=== PATIENT | male | born 1945 | race Caucasian/White ===

== ENCOUNTER 2024-03-31 11:02 | Emergency (ER) | payer MEDICARE ==
[~2024-03-31] VITALS: Ht 172.7 cm; Wt 68.0 kg
[2024-03-31 11:03] VITALS: O2SAT 99
[2024-03-31] MEDS: ACETAMINOPHEN 325MG TABLET PO ONE (14:00)
[2024-03-31 14:22] LABS: BASOPHILS % 0.1 % (0.0-2.0); HEMATOCRIT. 40.8 % (42.0-52.0); HEMOGLOBIN. 13.9 g/dL (14.0-18.0); LYMPHOCYTES % 7.1 % (20.0-50.0); MEAN CORPUSCULAR HEMOGLOBIN 27.9 pg (28.0-32.0); MEAN CORPUSCULAR HGB CONC 34.2 g/dL (31.0-37.0); MEAN CORPUSCULAR VOLUME 81.8 fL (80.0-94.0); MEAN PLATELET VOLUME 7.1 fl (7.4-10.4); MONOCYTES % 9.7 % (2.0-8.0); NEUTROPHILS % 83.1 % (40.0-76.0); PLATELET 256 x1000/uL (130-400); RED BLOOD CELL COUNT 4.99 mill/uL (4.7-6.1); RED CELL DISTRIBUTION WIDTH 15.3 % (11.6-14.6); WHITE BLOOD COUNT 9.6 x1000/uL (4.5-11.0)
[2024-03-31 14:28] LABS: CHLORIDE 103 mEq/L (98-107); POTASSIUM 3.9 mEq/L (3.5-5.1); SODIUM 135 mEq/L (136-145)
[2024-03-31 14:29] LABS: CALCIUM 9.3 mg/dL (8.7-10.4); CARBON DIOXIDE 25 mEq/L (21-32)
[2024-03-31 14:34] LABS: CREATININE 0.9 mg/dL (0.6-1.3); GLUCOSE 99 mg/dL (70-105); UREA NITROGEN BLOOD 15 mg/dL (9-23)
[2024-03-31] MEDS ORDERED: CEPH500T MT (15:28)
[2024-03-31] MEDS ORDERED: DOXY100T28 MT (15:28)
[2024-03-31] MEDS ORDERED: IBUP-2030 MT (15:28)
[2024-03-31] MEDS ORDERED: GABA-529 MT (15:59)
[2024-03-31 16:18] VITALS: BP 128/74; PULSE 89; RESP 18; TEMP 98
[2024-04-04] MEDS ORDERED: CARB-33 MT (17:28)
[2024-04-04] MEDS ORDERED: AMAN100T MT (17:35)
== END 2024-03-31 16:20 | disposition home or self-care (01) ==
LOC: ER 11:02
DX: M79.604 Pain in right leg (principal); L03.115 Cellulitis of right lower limb; I10 Essential (primary) hypertension; Z98.890 Other specified postprocedural states
CPT/HCPCS: 36415; 73590; 73610; 80048; 85025; 93971; 99284

== ENCOUNTER 2024-06-02 12:52 | Emergency (ER) | payer MEDICARE ==
[~2024-06-02] VITALS: Ht 172.7 cm; Wt 78.0 kg
[~2024-06-02 12:52] MED LIST: AMAN100T MT; CARB-33 MT; CEPH500T MT; DOXY100T28 MT; GABA-529 MT; IBUP-2030 MT; SULF1TAB48 MT
[2024-06-02 13:01] VITALS: BP 149/83; PULSE 82; TEMP 98.8; O2SAT 96
[2024-06-02 14:51] LABS: CLARITY URINE TURBID (CLEAR); COLOR URINE ORANGE (YELLOW); GLUCOSE URINE NEGATIVE (NEGATIVE); KETONES URINE TRACE (NEGATIVE); LEUKOCYTE ESTERASE URINE 3+ (NEGATIVE); NITRITE URINE NEGATIVE (NEGATIVE); OCCULT BLOOD URINE 3+ (NEGATIVE); PROTEIN URINE 3+ (NEGATIVE); SPECIFIC GRAVITY URINE 1.023 (1.005-1.030)
[2024-06-02 15:06] LABS: SQUAMOUS EPITHELIAL CELL URINE NONE SEEN /lpf (RARE/1+)
[2024-06-02 15:07] LABS: BACTERIA URINE 4+; RBC URINE TNTC /hpf (0-2)
[2024-06-02 15:08] LABS: WBC URINE TNTC /hpf (0-2)
[2024-06-02] MEDS ORDERED: CEFP200T13 MT (15:17)
[2024-06-02 15:20] VITALS: RESP 18
== END 2024-06-02 15:45 | disposition home or self-care (01) ==
LOC: ER 12:52
DX: N39.0 Urinary tract infection, site not specified (principal); I10 Essential (primary) hypertension; G20.A1 Parkinson's disease without dyskinesia, without mention of fluctuations
CPT/HCPCS: 81003; 87077; 87186; 99283

== ENCOUNTER 2025-02-03 10:27 | Inpatient (IN) | payer MEDICARE, OTHER ==
[~2025-02-03] VITALS: Ht 160 cm; Wt 70.8 kg
[~2025-02-03 10:27] MED LIST changes: +CEFP200T13 MT
[2025-02-03] MEDS: SODIUM CHLORIDE 0.9% 500 ML IV ONE (11:04)
[2025-02-03 11:19] LABS: BASOPHILS % 0.2 % (0.0-2.0); EOSINOPHILS % 0.1 % (0.0-5.0); HEMATOCRIT. 38.4 % (42.0-52.0); HEMOGLOBIN. 12.9 g/dL (14.0-18.0); LYMPHOCYTES % 9.6 % (20.0-50.0); MEAN CORPUSCULAR HEMOGLOBIN 27.2 pg (28.0-32.0); MEAN CORPUSCULAR HGB CONC 33.5 g/dL (31.0-37.0); MEAN CORPUSCULAR VOLUME 81.2 fL (80.0-94.0); MEAN PLATELET VOLUME 7.7 fl (7.4-10.4); MONOCYTES % 3.6 % (2.0-8.0); NEUTROPHILS % 86.5 % (40.0-76.0); PLATELET 72 x1000/uL (130-400); RED BLOOD CELL COUNT 4.73 mill/uL (4.7-6.1); RED CELL DISTRIBUTION WIDTH 16.6 % (11.6-14.6); WHITE BLOOD COUNT 3.2 x1000/uL (4.5-11.0)
[2025-02-03 11:20] LABS: CHLORIDE 96 mEq/L (98-107); SODIUM 128 mEq/L (136-145)
[2025-02-03 11:21] LABS: CARBON DIOXIDE 25 mEq/L (21-32)
[2025-02-03 11:22] LABS: CALCIUM 9.1 mg/dL (8.7-10.4)
[2025-02-03 11:26] LABS: GLUCOSE 87 mg/dL (70-105)
[2025-02-03 11:27] LABS: UREA NITROGEN BLOOD 29 mg/dL (9-23)
[2025-02-03 11:28] LABS: TROPONIN I HIGH SENSITIVITY 26 ng/L (3.0-53)
[2025-02-03 11:29] LABS: PHOSPHORUS 3.7 mg/dL (2.5-4.9)
[2025-02-03 11:45] LABS: CREATININE 1.6 mg/dL (0.6-1.3)
[2025-02-03] MEDS ORDERED: CALCIUM GLUCONATE 1,000 MG in DEXT 5% WATER 100 ML IV ONE (12:30)
[2025-02-03] MEDS ORDERED: INSULIN REGULAR (HUMULIN R) 1000UNITS/10ML VIAL IV ONE (12:30)
[2025-02-03] MEDS: CALCIUM GLUCONATE 1GM PREMIX 50 ML IV SCH (13:03)
[2025-02-03] MEDS: DEXTROSE 50% WATER 50ML SYRINGE IV ONE (13:04)
[2025-02-03] MEDS: INSULIN REGULAR (HUMULIN R) 1000UNITS/10ML VIAL IV NR (13:06)
[2025-02-03] MEDS ORDERED: ACETAMINOPHEN 325MG TABLET PO PRN (15:00)
[2025-02-03] MEDS ORDERED: ENOXAPARIN 40MG/0.4ML SYR SUBCUT SCH (15:00)
[2025-02-03] MEDS ORDERED: DOCUSATE SODIUM 100MG CAPSULE PO PRN (15:00)
[2025-02-03] MEDS: PANTOPRAZOLE 40MG DR TABLET PO SCH (15:00)
[2025-02-03] MEDS: SODIUM POLYSTYRENE SULFONATE 15 G/60 ML BOT PO NR (15:28)
[2025-02-03] MEDS: DEXT 5%/0.45% NACL 1000ML 1,000 ML IV SCH (15:42)
[2025-02-03] MEDS ORDERED: DEXT 10% WATER 1,000 ML IV ONE (17:00)
[2025-02-03] MEDS: GABAPENTIN 100MG CAPSULE PO SCH (17:00)
[2025-02-03] MEDS: DEXTROSE 50% WATER 50ML SYRINGE IV NR (17:03)
[2025-02-03 17:08] LABS: POTASSIUM 4.9 mEq/L (3.5-5.1)
[2025-02-03 17:09] LABS: CALCIUM 8.7 mg/dL (8.7-10.4)
[2025-02-03 17:14] LABS: CREATININE 1.5 mg/dL (0.6-1.3)
[2025-02-03] MEDS: ENOXAPARIN 30MG/0.3ML SYR SUBCUT SCH (17:37)
[2025-02-03] MEDS ORDERED: ACETAMINOPHEN 650MG SUPP PR PRN (17:45)
[2025-02-03] MEDS ORDERED: IPRATROPIUM/ALBUTEROL 0.5-3(2.5)MG/3ML NEB NEB PRN (17:45)
[2025-02-03] MEDS: VANCOMYCIN 1G PREMIX 200 ML IV SCH (18:24)
[2025-02-03] MEDS: LEVOFLOXACIN 500MG PREMIX 100 ML IV SCH (20:01)
[2025-02-03] MEDS: MVI, ADULT NO.1 10 ML, FOLIC ACID 1 MG, THIAMINE HCL 100 MG in SODIUM CHLORIDE 0.9% 1,0... IV SCH (20:15)
[2025-02-03] MEDS: AMANTADINE 100MG CAPSULE PO SCH (21:00)
[2025-02-03 22:00] VITALS: BP 123/57; PULSE 60; RESP 13; TEMP 34.3; O2SAT 95
[2025-02-03] MEDS: CARBIDOPA/LEVODOPA 10/100MG TABLET PO SCH (22:00)
[2025-02-03 23:08] VITALS: BP 123/57; PULSE 42; RESP 11; TEMP 33.4
[2025-02-04] VITALS (45 sets, daily range): BP systolic 82–129; BP diastolic 45–88; PULSE 45–87; RESP 11–26; TEMP 34.8–36.7; O2SAT 89–100
[2025-02-04 00:26] LABS: CREATINE KINASE MB FRACTION 27.9 ng/mL (0.5-3.6)
[2025-02-04] MEDS: PIPERACILLIN/TAZO 3.375G/50ML 50 ML IV SCH (01:25)
[2025-02-04] MEDS: ACETYLCYSTEINE 200MG/ML 20% VIAL 4ML INH SCH (01:38)
[2025-02-04 01:52] LABS: BG BASE EXCESS 0.4 mmol/L (-2.0-3.0); BG CARBOXYHEMOGLOBIN 0.3 % (0.5-1.5); BG DEOXYHEMOGLOBIN 5.5 % (0.0-5.0); BG FRACTION INSPIRED OXYGEN 21; BG HCO3 ACT 25.4 mmol/L (21.0-28.0); BG METHEMOGLOBIN 0.3 % (0.5-1.5); BG OXYGEN SATURATION 94.5 % (94.0-98.0); BG OXYHEMOGLOBIN 93.9 % (94.0-98.0); BG PCO2 42.9 mmHg (35.0-48.0); BG PH 7.391 (7.350-7.450); BG PO2 69.7 mmHg (83.0-108.0); BG SAMPLE SITE RIGHT RADIAL; BG VENT MODE ROOM AIR
[2025-02-04] MEDS: DEXT 5%/0.45% NACL 1000ML 1,000 ML IV SCH (07:07)
[2025-02-04 07:12] LABS: BASOPHILS % 0.2 % (0.0-2.0); EOSINOPHILS % 0.1 % (0.0-5.0); HEMATOCRIT. 32.1 % (42.0-52.0); HEMOGLOBIN. 10.8 g/dL (14.0-18.0); LYMPHOCYTES % 7.7 % (20.0-50.0); MEAN CORPUSCULAR HEMOGLOBIN 27.1 pg (28.0-32.0); MEAN CORPUSCULAR HGB CONC 33.7 g/dL (31.0-37.0); MEAN CORPUSCULAR VOLUME 80.4 fL (80.0-94.0); MEAN PLATELET VOLUME 8.9 fl (7.4-10.4); MONOCYTES % 3.4 % (2.0-8.0); NEUTROPHILS % 88.6 % (40.0-76.0); PLATELET 67 x1000/uL (130-400); RED BLOOD CELL COUNT 3.99 mill/uL (4.7-6.1); RED CELL DISTRIBUTION WIDTH 16.2 % (11.6-14.6)
[2025-02-04 07:27] LABS: DIFFERENTIAL COMMENT 1
[2025-02-04 07:42] LABS: CALCIUM 8.1 mg/dL (8.7-10.4)
[2025-02-04 07:47] LABS: CREATININE 1.5 mg/dL (0.6-1.3)
[2025-02-04 07:49] LABS: THYROID STIMULATING HORMONE 2.87 uIU/mL (0.55-4.78)
[2025-02-04] MEDS ORDERED: DEXTROSE 50% WATER 50ML SYRINGE IV ONE (07:53)
[2025-02-04] MEDS: SODIUM CHLORIDE 0.9% 500 ML IV ONE (08:00)
[2025-02-04] MEDS ORDERED: DEXT 10% WATER 1,000 ML IV SCH (08:00)
[2025-02-04 08:02] LABS: BG BASE EXCESS -0.7 mmol/L (-2.0-3.0); BG CARBOXYHEMOGLOBIN 0.1 % (0.5-1.5); BG DEOXYHEMOGLOBIN 5.3 % (0.0-5.0); BG FRACTION INSPIRED OXYGEN 50; BG HCO3 ACT 21.6 mmol/L (21.0-28.0); BG METHEMOGLOBIN 0.3 % (0.5-1.5); BG OXYGEN SATURATION 94.7 % (94.0-98.0); BG OXYHEMOGLOBIN 94.3 % (94.0-98.0); BG PCO2 28.5 mmHg (35.0-48.0); BG PH 7.498 (7.350-7.450); BG PO2 65.1 mmHg (83.0-108.0); BG SAMPLE SITE LEFT RADIAL; BG TOTAL HEMOGLOBIN 11.1 g/dL (13.5-17.5); BG VENT MODE MASK - VENTI
[2025-02-04] MEDS ORDERED: DEXTROSE 50% WATER 50ML SYRINGE IV PRN (08:15)
[2025-02-04] MEDS: DEXTROSE 50% WATER 50ML SYRINGE IV PRN (08:32)
[2025-02-04] MEDS: PANTOPRAZOLE SODIUM 40 MG/VIAL IV SCH (08:47)
[2025-02-04 09:02] LABS: POTASSIUM 6.3 mEq/L (3.5-5.1)
[2025-02-04] MEDS ORDERED: ALBUTEROL (0.083%) 2.5MG/3ML NEB HHN NR ×2 (11:00→14:00)
[2025-02-04] MEDS: FUROSEMIDE 20MG/2ML VIAL IVP NR (11:00)
[2025-02-04] MEDS ORDERED: VANCOMYCIN 500MG PREMIX 100 ML IV SCH (12:00)
[2025-02-04 13:05] LABS: POTASSIUM 6.4 mEq/L (3.5-5.1)
[2025-02-04] MEDS: IPRATROPIUM/ALBUTEROL 0.5-3(2.5)MG/3ML NEB HHN SCH (13:30)
[2025-02-04] MEDS ORDERED: NOREPINEPHRINE 8MG/250ML PMX 250 ML IV PRN (13:45)
[2025-02-04] MEDS: SODIUM ZIRCONIUM CYCLOSILICATE 10GM/PACKET PO NR (14:00)
[2025-02-04] MEDS: METHYLPREDNISOLONE SOD SUCC 40MG/ML (ACT-O-VIAL) IV SCH (14:00)
[2025-02-04] MEDS ORDERED: CALCIUM GLUCONATE 1GM PREMIX 50 ML IV NR (14:00)
[2025-02-04 14:18] LABS: BG BASE EXCESS -0.5 mmol/L (-2.0-3.0); BG CARBOXYHEMOGLOBIN 0.6 % (0.5-1.5); BG DEOXYHEMOGLOBIN 9.8 % (0.0-5.0); BG FRACTION INSPIRED OXYGEN 50; BG HCO3 ACT 21.8 mmol/L (21.0-28.0); BG METHEMOGLOBIN 0.3 % (0.5-1.5); BG OXYGEN SATURATION 90.1 % (94.0-98.0); BG OXYHEMOGLOBIN 89.3 % (94.0-98.0); BG PH 7.494 (7.350-7.450); BG PO2 51.2 mmHg (83.0-108.0); BG SAMPLE SITE RIGHT RADIAL; BG TOTAL HEMOGLOBIN 12.4 g/dL (13.5-17.5); BG VENT MODE MASK - VENTI
[2025-02-04 14:38] LABS: CREATINE KINASE 85 IU/L (46-171)
[2025-02-04] MEDS ORDERED: MIDAZOLAM 100MG/100ML PMX 100 ML IV PRN (15:30)
[2025-02-04] MEDS ORDERED: PHENYLEPHRINE 100 MG in DEXT 5% WATER 240 ML IV PRN (15:30)
[2025-02-04 15:39] LABS: BG CARBOXYHEMOGLOBIN 0.1 % (0.5-1.5); BG DEOXYHEMOGLOBIN 0.7 % (0.0-5.0); BG FRACTION INSPIRED OXYGEN 100; BG HCO3 ACT 22.2 mmol/L (21.0-28.0); BG METHEMOGLOBIN 0.4 % (0.5-1.5); BG OXYGEN SATURATION 99.3 % (94.0-98.0); BG OXYHEMOGLOBIN 98.8 % (94.0-98.0); BG PCO2 36.2 mmHg (35.0-48.0); BG PH 7.406 (7.350-7.450); BG PO2 173.4 mmHg (83.0-108.0); BG SAMPLE SITE LEFT RADIAL; BG TOTAL HEMOGLOBIN 12.5 g/dL (13.5-17.5); BG TOTAL RESPIRATORY RATE 16 b/min; BG VENT MODE VENT - AC
[2025-02-04] MEDS: INSULIN REGULAR (HUMULIN R) 1000UNITS/10ML VIAL IV NR (15:54)
[2025-02-04] MEDS: DEXTROSE 50% WATER 50ML SYRINGE IV NR (15:54)
[2025-02-04] MEDS: BLOOD SUGAR DIAGNOSTIC STRIP TEST SCH (15:55)
[2025-02-04] MEDS: INSULIN LISPRO 100 UNITS/ML SUBCUT SCH (15:55)
[2025-02-04] MEDS: SODIUM POLYSTYRENE SULFONATE 15 G/60 ML BOT PO SCH (16:40)
[2025-02-04] MEDS: CALCIUM GLUCONATE 1GM PREMIX 50 ML IV NR (17:32)
[2025-02-04] MEDS: VANCOMYCIN 750MG/150ML (BAXTER) IV SCH (17:33)
[2025-02-04] MEDS: DEXTROSE 20% WATER 500 ML IV ONE (19:49)
[2025-02-04 21:56] LABS: POTASSIUM 5.1 mEq/L (3.5-5.1)
[2025-02-05] VITALS (100 sets, daily range): BP systolic 109–162; BP diastolic 48–96; PULSE 51–82; RESP 11–30; TEMP 35.6–36.7; O2SAT 98–100
[2025-02-05] MEDS: INSULIN LISPRO 100 UNITS/ML SUBCUT SCH (05:10)
[2025-02-05] MEDS: BLOOD SUGAR DIAGNOSTIC STRIP TEST SCH (05:10)
[2025-02-05] MEDS: DEXTROSE 20% WATER 500 ML IV SCH (06:40)
[2025-02-05 08:53] LABS: BG BASE EXCESS -6.2 mmol/L (-2.0-3.0); BG CARBOXYHEMOGLOBIN 0.5 % (0.5-1.5); BG DEOXYHEMOGLOBIN 0.6 % (0.0-5.0); BG FRACTION INSPIRED OXYGEN 50; BG HCO3 ACT 18.8 mmol/L (21.0-28.0); BG METHEMOGLOBIN 0.1 % (0.5-1.5); BG OXYGEN SATURATION 99.4 % (94.0-98.0); BG OXYHEMOGLOBIN 98.8 % (94.0-98.0); BG PCO2 35.9 mmHg (35.0-48.0); BG PH 7.338 (7.350-7.450); BG PO2 174.2 mmHg (83.0-108.0); BG SAMPLE SITE LEFT RADIAL; BG TOTAL HEMOGLOBIN 13.3 g/dL (13.5-17.5); BG TOTAL RESPIRATORY RATE 16 b/min; BG VENT MODE VENT - AC
[2025-02-05] MEDS: SODIUM CHLORIDE 0.9% 500 ML IV ONE (09:00)
[2025-02-05 10:37] LABS: HEMOGLOBIN. 12.4 g/dL (14.0-18.0); MEAN CORPUSCULAR HEMOGLOBIN 27.7 pg (28.0-32.0); MEAN CORPUSCULAR HGB CONC 33.6 g/dL (31.0-37.0); MEAN CORPUSCULAR VOLUME 82.5 fL (80.0-94.0); MEAN PLATELET VOLUME 9.4 fl (7.4-10.4); PLATELET 51 x1000/uL (130-400); RED BLOOD CELL COUNT 4.48 mill/uL (4.7-6.1); RED CELL DISTRIBUTION WIDTH 16.6 % (11.6-14.6); WHITE BLOOD COUNT 7.5 x1000/uL (4.5-11.0)
[2025-02-05 10:50] LABS: CHLORIDE 93 mEq/L (98-107); POTASSIUM 5.3 mEq/L (3.5-5.1); SODIUM 121 mEq/L (136-145)
[2025-02-05 10:51] LABS: CARBON DIOXIDE 21 mEq/L (21-32)
[2025-02-05 10:52] LABS: CALCIUM 8.3 mg/dL (8.7-10.4); DIFFERENTIAL COMMENT 1
[2025-02-05 10:56] LABS: GLUCOSE 164 mg/dL (70-105); UREA NITROGEN BLOOD 45 mg/dL (9-23)
[2025-02-05 10:58] LABS: ALANINE AMINOTRANSFERASE 120 IU/L (10-49); ALBUMIN 2.7 g/dL (3.2-4.8); ASPARTATE AMINOTRANSFERASE 125 IU/L (<34)
[2025-02-05 10:59] LABS: BILIRUBIN TOTAL 0.7 mg/dL (0.1-1.0)
[2025-02-05 11:17] LABS: CREATININE 2.6 mg/dL (0.6-1.3)
[2025-02-05] MEDS: SODIUM BICARBONATE 8.4% 50MEQ/50ML SYR IV SCH (12:41)
[2025-02-05] MEDS: FUROSEMIDE 20MG/2ML VIAL IVP SCH (12:42)
[2025-02-05] MEDS: SODIUM ZIRCONIUM CYCLOSILICATE 10GM/PACKET PO SCH (12:58)
[2025-02-05] MEDS: LIDOCAINE HCL 1% 10 MG/ML 10ML VIAL ONE (13:04)
[2025-02-05 14:19] LABS: PLATELET ESTIMATE MARKEDLY DECREASED
[2025-02-05 14:20] LABS: ANISOCYTOSIS 1+
[2025-02-05] MEDS: CALCIUM GLUCONATE 1GM PREMIX 50 ML IV ONE (15:22)
[2025-02-05] MEDS: CALCIUM GLUCONATE 1GM PREMIX 50 ML IV NR (15:52)
[2025-02-05] MEDS: VANCOMYCIN 750MG PREMIX 150 ML IV NR (19:56)
[2025-02-05] MEDS: PIPERACILLIN/TAZO 3.375G/50ML 50 ML IV SCH (21:08)
[2025-02-06] VITALS (67 sets, daily range): BP systolic 109–143; BP diastolic 51–80; PULSE 50–58; RESP 11–22; TEMP 36.3–36.4; O2SAT 98–100
[2025-02-06] MEDS: CARBIDOPA/LEVODOPA 25/250MG TABLET PO SCH (05:37)
[2025-02-06 05:59] LABS: CALCIUM 8.3 mg/dL (8.7-10.4); POTASSIUM 4.8 mEq/L (3.5-5.1)
[2025-02-06 06:05] LABS: CREATININE 2.7 mg/dL (0.6-1.3)
[2025-02-06 08:11] LABS: HEMATOCRIT. 32.3 % (42.0-52.0); MEAN CORPUSCULAR HEMOGLOBIN 27.7 pg (28.0-32.0); MEAN CORPUSCULAR HGB CONC 34.2 g/dL (31.0-37.0); MEAN CORPUSCULAR VOLUME 80.8 fL (80.0-94.0); MEAN PLATELET VOLUME 10.5 fl (7.4-10.4); RED BLOOD CELL COUNT 3.99 mill/uL (4.7-6.1); RED CELL DISTRIBUTION WIDTH 16.5 % (11.6-14.6); WHITE BLOOD COUNT 7.1 x1000/uL (4.5-11.0)
[2025-02-06 08:43] LABS: DIFFERENTIAL COMMENT 1
[2025-02-06 08:49] LABS: PLATELET 35 x1000/uL (130-400)
[2025-02-06 16:42] LABS: PLATELET ESTIMATE MARKEDLY DECREASED
[2025-02-06 21:35] LABS: BG BASE EXCESS -4.8 mmol/L (-2.0-3.0); BG CARBOXYHEMOGLOBIN 0.3 % (0.5-1.5); BG DEOXYHEMOGLOBIN 1.9 % (0.0-5.0); BG FRACTION INSPIRED OXYGEN 40; BG HCO3 ACT 19.2 mmol/L (21.0-28.0); BG METHEMOGLOBIN 0.2 % (0.5-1.5); BG OXYGEN SATURATION 98.1 % (94.0-98.0); BG OXYHEMOGLOBIN 97.6 % (94.0-98.0); BG PCO2 32.2 mmHg (35.0-48.0); BG PH 7.394 (7.350-7.450); BG PO2 104.7 mmHg (83.0-108.0); BG SAMPLE SITE LEFT RADIAL; BG TOTAL HEMOGLOBIN 11.7 g/dL (13.5-17.5); BG VENT MODE VENT - AC
[2025-02-07] VITALS (42 sets, daily range): BP systolic 114–139; BP diastolic 62–78; PULSE 50–94; RESP 13–30; TEMP 36.2–36.5; O2SAT 98–100
[2025-02-07 06:35] LABS: CALCIUM 7.9 mg/dL (8.7-10.4); POTASSIUM 4.5 mEq/L (3.5-5.1)
[2025-02-07 06:41] LABS: CREATININE 2.5 mg/dL (0.6-1.3)
[2025-02-07] MEDS: VANCOMYCIN 750MG/150ML (BAXTER) IV NR (22:20)
[2025-02-08] VITALS (37 sets, daily range): BP systolic 127–157; BP diastolic 64–79; PULSE 67–87; RESP 9–22; TEMP 35.5–36.6; O2SAT 97–100
[2025-02-08] MEDS: METHYLPREDNISOLONE SOD SUCC 125MG/2ML (ACT-O-VIAL) IV SCH (14:52)
[2025-02-08] MEDS ORDERED: NALOXONE HCL 0.4MG/ML VIAL IV PRN (15:45)
[2025-02-08] MEDS: MORPHINE SULFATE 2 MG/ML INJ (NOT FOR IM USE) IV PRN (16:13)
[2025-02-09] VITALS (15 sets, daily range): BP systolic 135–154; BP diastolic 71–88; PULSE 67–91; RESP 9–16; TEMP 35.9–37.1; O2SAT 88–100
[2025-02-09] MEDS ORDERED: DORZ1DRO7 OP (17:43)
[2025-02-09] MEDS ORDERED: LATA2.5D14 EACHEYE (17:45)
[2025-02-10] VITALS: BP 126/63; PULSE 68; RESP 16; TEMP 35.1; O2SAT 74
[2025-02-10 04:00] VITALS: BP 125/65; PULSE 69; RESP 18; TEMP 35.2; O2SAT 85
[2025-02-10] MEDS: IPRATROPIUM/ALBUTEROL 0.5-3(2.5)MG/3ML NEB HHN SCH (05:53)
[2025-02-10 08:00] VITALS: BP 110/51; PULSE 69; RESP 16; TEMP 35.9; O2SAT 74
[2025-02-10 12:00] VITALS: BP 116/59; PULSE 70; RESP 17; TEMP 36.4; O2SAT 80
[2025-02-10 16:00] VITALS: BP 118/59; PULSE 73; RESP 17; TEMP 35.9; O2SAT 82
[2025-02-10 20:00] VITALS: BP 111/58; PULSE 76; RESP 17; TEMP 35.4; O2SAT 80
[2025-02-11] VITALS (10 sets, daily range): BP systolic 99–120; BP diastolic 43–53; PULSE 71–86; RESP 13–20; TEMP 35.1–36.6; O2SAT 77–98
[2025-02-11] MEDS: DEXT 5%/0.45% NACL 1000ML 1,000 ML IV SCH (06:54)
[2025-02-12] VITALS: BP 118/53; PULSE 72; RESP 12; TEMP 34.8; O2SAT 92
[2025-02-12 01:15] VITALS: PULSE 90; RESP 20; O2SAT 97
[2025-02-12 04:00] VITALS: BP 120/61; PULSE 84; RESP 12; TEMP 35.9; O2SAT 79
[2025-02-12 08:40] VITALS: PULSE 99; RESP 20; O2SAT 93
== END 2025-02-12 11:00 | DRG 870 ==
LOC: ER 10:27 → EDBEDREQSVC 19:09 → 5EST 21:57 → MICUSO 02-04 14:40 → 6EST 02-09 15:57
PROVIDERS: ADMIT Internal Medicine; ATTEND Internal Medicine
PROC: 5A1955Z Respiratory Ventilation, Greater than 96 Consecutive Hours (ICD-10-PCS; principal; 2025-02-04)
PROC: 0BH17EZ Insertion of Endotracheal Airway into Trachea, Via Natural or Artificial Opening (ICD-10-PCS; 2025-02-04)
PROC: 4A00X4Z Measurement of Central Nervous Electrical Activity, External Approach (ICD-10-PCS; 2025-02-05)
PROC: 02HV33Z Insertion of Infusion Device into Superior Vena Cava, Percutaneous Approach (ICD-10-PCS; 2025-02-05)
PROC: B548ZZA Ultrasonography of Superior Vena Cava, Guidance (ICD-10-PCS; 2025-02-05)
DX: A41.9 Sepsis, unspecified organism (principal); G93.41 Metabolic encephalopathy; J69.0 Pneumonitis due to inhalation of food and vomit; J96.21 Acute and chronic respiratory failure with hypoxia; R65.21 Severe sepsis with septic shock; N17.0 Acute kidney failure with tubular necrosis; E87.1 Hypo-osmolality and hyponatremia; G93.1 Anoxic brain damage, not elsewhere classified; Z99.11 Dependence on respirator [ventilator] status; I69.351 Hemiplegia and hemiparesis following cerebral infarction affecting right dominant side; Z66 Do not resuscitate; E16.2 Hypoglycemia, unspecified; I46.9 Cardiac arrest, cause unspecified; E87.5 Hyperkalemia; I10 Essential (primary) hypertension; D69.6 Thrombocytopenia, unspecified; D64.9 Anemia, unspecified; G20.A1 Parkinson's disease without dyskinesia, without mention of fluctuations; F02.80 Dementia in other diseases classified elsewhere, unspecified severity, without behavioral disturbance, psychotic disturbance, mood disturbance, and anxiety; S80.812A Abrasion, left lower leg, initial encounter; Z79.2 Long term (current) use of antibiotics; Z79.899 Other long term (current) drug therapy; X58.XXXA Exposure to other specified factors, initial encounter; Y93.89 Activity, other specified; Y92.89 Other specified places as the place of occurrence of the external cause; Y99.8 Other external cause status
CPT/HCPCS: 36415; 36573; 36600; 70551; 71045; 76770; 80048; 80053; 80202; 82375; 82533; 82550; 82553; 82805; 82962; 83735; 83880; 84100; 84132; 84443; 84484; 85025; 87070; 93005; 94003; 94070; 94640; 94664; 95816; 98960; 99285; A4606; C1725; J0610; J1650; J1815; J1940; J1956; J2003; J2270; J2470; J2543; J2919; J2920; J3370; J3411; J3490; J7030; J7040; J7060; J7608